=== PATIENT | female | born 1985 | race Caucasian/White ===

== ENCOUNTER 2022-05-31 16:06 | Emergency (ER) | payer MEDICAID ==
[~2022-05-31] VITALS: Ht 167.6 cm; Wt 77.0 kg
[~2022-05-31 16:06] MED LIST: AMOX400S53; IBU800T
[2022-05-31 16:44] VITALS: BP 111/81
== END 2022-05-31 21:15 | disposition left against medical advice (07) ==
LOC: ER 16:06
DX: R07.89 Other chest pain (principal); F15.10 Other stimulant abuse, uncomplicated; F17.210 Nicotine dependence, cigarettes, uncomplicated; F12.10 Cannabis abuse, uncomplicated; E11.9 Type 2 diabetes mellitus without complications
CPT/HCPCS: 93005